=== PATIENT | male | born 1950 | race Two or more races ===

== ENCOUNTER 2021-03-07 22:34 | Inpatient (IN) | payer OTHER, MEDICAID ==
[~2021-03-07] VITALS: Ht 172.7 cm; Wt 90.7 kg
[2021-03-07] MEDS ORDERED: cloNIDine HCL 0.1 MG TAB PO ONE (23:00)
[2021-03-07] MEDS ORDERED: OXYMETAZOLINE HCL 0.05 % NASAL SPRAY 15ML ONE (23:20)
[2021-03-07] MEDS ORDERED: OXYMETAZOLINE HCL 0.05 % NASAL SPRAY 15ML EACHNOSTRI ONE (23:30)
[2021-03-07 23:48] LABS: Basophils # (auto) 0.1 10 ^3/uL (0-0.2); Basophils % (auto) 1.1 % (0.0-2.0); Eosinophils # (auto) 0.1 10 ^3/uL (0-0.8); Hemoglobin 8.3 g/dL (13.5-17.5); Lymphocytes # (auto) 0.8 10 ^3/uL (0.4-5.4); Monocytes # (auto) 0.3 10 ^3/uL (0-1.3); Red Blood Cells 2.78 10^6/uL (4.5-5.90)
[2021-03-07 23:50] LABS: Eosinophils % (auto) 2.2 % (0.0-7.0); Hematocrit 24.9 % (41.0-53.0); Lymphocytes % (auto) 14.2 % (10.0-50.0); Mean Corpuscular Hemoglobin 29.8 pg (28.0-32.0); Mean Corpuscular Hgb Conc. 33.2 g/dL (32.0-36.0); Mean Corpuscular Volume 89.5 fL (80.0-100.0); Monocytes % (auto) 5.6 % (0.0-12.0); Neutrophils # (auto) 4.5 10 ^3/uL (1.6-8.6); Neutrophils % (auto) 76.9 % (37.0-80.0); Red Cell Distribution Width 14.6 % (11.8-14.3); White Blood Cell 5.9 10^3/uL (4.4-10.8)
[2021-03-08] MEDS ORDERED: hydrALAZINE HCL 20 MG/ML VL IV ONE
[2021-03-08 00:04] LABS: INR 1.09 (0.9-1.15); Partial Thromboplastin Time 27.7 sec (23.6-33.0)
[2021-03-08 00:07] LABS: Albumin 3.5 g/dL (3.4-5.0); BUN/Creatinine Ratio 8.9; Magnesium 3.4 mg/dL (1.6-2.6)
[2021-03-08 00:11] LABS: Bilirubin, Total 0.4 mg/dL (0.2-1.0); Total Protein 7.3 g/dL (6.4-8.2)
[2021-03-08 00:17] LABS: Potassium 5.9 mmol/L (3.5-5.1)
[2021-03-08] MEDS ORDERED: COCAINE HCL 4% TOP SOL 4ML TOP ONE (02:45)
[2021-03-08] MEDS ORDERED: ALBUTEROL SULF 2.5 MG/0.5ML(0.5%) NEB SOLN NEB ONE (03:15)
[2021-03-08] MEDS ORDERED: ONDANSETRON HCL 4 MG/2 ML VIAL IV ONE (03:15)
[2021-03-08] MEDS ORDERED: InsuLIN REG 1unit/0.01ml Soln (100units/ml) IV ONE (03:15)
[2021-03-08] MEDS ORDERED: CALCIUM GLUC 1,000mg/50ml-NS 50 ML IV ONE (03:15)
[2021-03-08] MEDS ORDERED: SODIUM BICARBONATE 8.4% INJ 50ML SYRINGE IV ONE (03:15)
[2021-03-08] MEDS ORDERED: DEXTROSE (50%) 50ML SYRG IV ONE (03:15)
[2021-03-08] MEDS ORDERED: SODIUM ZIRCONIUM CYCL 10 GM PAK PO ONE (03:15)
[2021-03-08] MEDS ORDERED: fentaNYL CITRATE 100 MCG/2 ML VL IV ONE (03:15)
[2021-03-08] MEDS ORDERED: HYDROcodone-ACET 5/325MG TAB PO ONE (05:15)
[2021-03-08] MEDS ORDERED: DEXTROSE (50%) 50ML SYRG IV PRN (06:00)
[2021-03-08] MEDS ORDERED: NITROGLYCERIN 0.4 MG SL TAB SL PRN (06:00)
[2021-03-08] MEDS ORDERED: ACETAMINOPHEN 325 MG TAB PO PRN (06:00)
[2021-03-08] MEDS ORDERED: ONDANSETRON HCL 4 MG/2 ML VIAL IV PRN (06:00)
[2021-03-08] MEDS ORDERED: HYDROcodone-ACET 5/325MG TAB PO PRN (06:00)
[2021-03-08] MEDS ORDERED: DOCUSATE SOD 100 MG CAP PO PRN (06:00)
[2021-03-08] MEDS ORDERED: hydrALAZINE HCL 20 MG/ML VL IV PRN (06:00)
[2021-03-08] MEDS ORDERED: MORPHINE SULFATE INJECTION 2 MG/ML SYRG IV PRN (06:00)
[2021-03-08] MEDS ORDERED: InsuLIN REG 1unit/0.01ml Soln (100units/ml) SC SCH ×2 (07:00→22:00)
[2021-03-08] MEDS ORDERED: ACCU-CHEK COMFORT CURVE STRIP VI SCH (07:00)
[2021-03-08] MEDS ORDERED: SEVELAMER 800 MG TAB PO SCH (08:00)
[2021-03-08] MEDS ORDERED: amLODIPine BESYLATE 5 MG TAB PO SCH (10:00)
[2021-03-08] MEDS ORDERED: CARVEDILOL 12.5 MG TAB PO SCH (10:00)
[2021-03-08] MEDS ORDERED: ZINC SULFATE 220mg CAP or TAB PO SCH (10:00)
[2021-03-08] MEDS ORDERED: ASCORBIC ACID 500 MG TAB PO SCH (10:00)
[2021-03-08] MEDS ORDERED: FAMOTIDINE (10MG/ML) 2ML VL IV SCH (10:00)
[2021-03-08] MEDS ORDERED: B-COMPLEX W/ C & FOLIC ACID(NEPHROVITE TAB) PO SCH (10:00)
[2021-03-08 10:05] VITALS: BP 159/75
== END 2021-03-08 09:45 | disposition left against medical advice (07) | DRG 150 ==
LOC: ER 22:34 → EDBD 22:34 → TELE 03-08 06:10
PROVIDERS: ADMIT Nurse Practitioner Family; ATTEND Internal Medicine
DX: R04.0 Epistaxis (principal); N18.6 End stage renal disease; U07.1 COVID-19; I12.0 Hypertensive chronic kidney disease with stage 5 chronic kidney disease or end stage renal disease; E87.5 Hyperkalemia; D63.8 Anemia in other chronic diseases classified elsewhere; Z99.2 Dependence on renal dialysis; E11.65 Type 2 diabetes mellitus with hyperglycemia; E66.01 Morbid (severe) obesity due to excess calories; E83.42 Hypomagnesemia; I51.7 Cardiomegaly; Z68.30 Body mass index [BMI] 30.0-30.9, adult; E11.22 Type 2 diabetes mellitus with diabetic chronic kidney disease
CPT/HCPCS: 36415; 71045; 80053; 83735; 84484; 85025; 85610; 85730; 87426; 94640; 96374; G0378; J1815; J2405